=== PATIENT | female | born 1955 | race Caucasian/White ===

== ENCOUNTER 2022-04-12 10:59 | Outpatient (CLI) | payer OTHER | END 2022-04-12 11:10 | disposition home or self-care (01) | LOC: RAD 10:59 | DX: M16.0 Bilateral primary osteoarthritis of hip (principal); M54.16 Radiculopathy, lumbar region ==

== ENCOUNTER → 2022-06-22 | Outpatient (CLI) | payer OTHER | END | disposition home or self-care (01) | LOC: SONOGRAMA 09:54 | PROVIDERS: ATTEND Internal Medicine | DX: E03.9 Hypothyroidism, unspecified (principal) ==

== ENCOUNTER 2024-03-15 16:24 | Emergency (ER) | payer OTHER ==
[~2024-03-15] VITALS: Ht 165.1 cm; Wt 56.7 kg
[2024-03-15] MEDS ORDERED: SYNTHROID50 MCG PO (17:01)
[2024-03-15] MEDS ORDERED: CLONAZEPAM0.5 MG PO (17:02)
[2024-03-15] MEDS ORDERED: ATORVASTATIN CA10 MG PO (17:02)
[2024-03-15] MEDS ORDERED: KETOROLAC TROMETHAMINE 15 MG VIAL IV ONE (17:30)
[2024-03-15] MEDS ORDERED: CIPROFLOXACIN IN 5 % DEXTROSE 400 MG/200 ML PIGGYBAG IV ONE ×2 (17:30→17:35)
[2024-03-15] MEDS ORDERED: HYOSCYAMINE SULFATE 0.125 MG TAB.SUBL SL ONE (17:30)
[2024-03-15] MEDS ORDERED: METRONIDAZOLE/SODIUM CHLORIDE 500 MG/100 ML PIGGYBACK IV ONE ×2 (17:30→17:35)
[2024-03-15] MEDS ORDERED: PANTOPRAZOLE SODIUM 40 MG/VIAL VIAL IV ONE (17:30)
[2024-03-15] MEDS ORDERED: 0.9 % SODIUM CHLORIDE 500 ML IV ONE (17:30)
[2024-03-15] MEDS ORDERED: HYOSCYAMINE SULFATE 0.125 MG TAB.SUBL ONE (17:34)
[2024-03-15] MEDS ORDERED: KETOROLAC TROMETHAMINE 30 MG VIAL ONE (17:34)
[2024-03-15 17:38] LABS: HEMATOCRIT 38.5 % (36.0-45.00); HEMOGLOBIN 13.1 g/dL (12.0-15.00); MEAN CELL VOLUME 94.1 fL (80.00-100.00); PLATELET COUNT 269 K/uL (150-450); RED BLOOD COUNT 4.09 M/uL (4.00-6.00); RED CELL DISTRIBUTION WIDTH 12.7 % (11.5-14.5)
[2024-03-15 18:06] LABS: INR 1.02; PROTHROMBIN TIME 11.1 SECONDS (9.0-11.5)
[2024-03-15 18:11] LABS: ALBUMIN 3.6 gm/dL (3.4-5.0); BILIRUBIN TOTAL 0.6 mg/dL (0.3-1.2); CALCIUM 9.7 mg/dL (8.5-10.1); CREATININE SERUM 0.85 mg/dL (0.55-1.02); GFR 66.71; GLOBULINA 3.5 G/DL (2.4-3.5); POTASSIUM 4.03 mEq/L (3.5-5.1); TOTAL PROTEIN 7.1 gm/dL (6.4-8.2)
[2024-03-15 20:22] LABS: URINE APPEARANCE Clear; URINE BILIRRUBIN Negative (NEGATIVE); URINE BLOOD Negative; URINE GLUCOSE Negative (NEGATIVE); URINE KETONE 15 (NEGATIVE); URINE LEUKOCYTE Trace; URINE NITRATE Error; URINE PROTEIN Negative (NEGATIVE); URINE UROBILINOGEN 0.2 E.U./dl
[2024-03-15 20:26] LABS: URINE BACTERIA 545.5 uL (0.0-1933); URINE EPITHELIAL CELLS 57.8 uL (0.0-38.8); URINE RBC 4.8 uL (0.0-20.8); URINE WBC 7.5 uL (0.0-23.2)
[2024-03-15 21:35] LABS: URINE CAST 0.61 uL (0.0-1.40)
== END 2024-03-15 21:10 | disposition home or self-care (01) ==
LOC: ER 16:25
PROVIDERS: General Practice
DX: K57.92 Diverticulitis of intestine, part unspecified, without perforation or abscess without bleeding (principal); Z20.822 Contact with and (suspected) exposure to COVID-19
CPT/HCPCS: 36415; 96365; 96366; 99283; J0744; J1885; J3490

== ENCOUNTER 2024-04-22 10:28 | Outpatient (CLI) | payer OTHER ==
[~2024-04-22 10:28] MED LIST: ATORVASTATIN CA10 MG PO; CLONAZEPAM0.5 MG PO; SYNTHROID50 MCG PO
== END 2024-04-22 10:33 | disposition home or self-care (01) ==
LOC: RAD 10:28
PROVIDERS: ATTEND Neuromusculoskeletal Medicine, Sports Medicine
DX: M17.0 Bilateral primary osteoarthritis of knee (principal)